=== PATIENT | female | born 1990 | race African-American/Black ===

== ENCOUNTER 2021-07-25 19:25 | Inpatient (IN) | payer OTHER, SELFPAY ==
[~2021-07-25] VITALS: Ht 167.6 cm; Wt 113.4 kg
[2021-07-25] MEDS ORDERED: PROMETHAZINE 25 MG/ML VIAL IVP PRN (19:55)
[2021-07-25] MEDS ORDERED: LACTATED RINGERS 500 ML IV ONE (19:55)
[2021-07-25] MEDS ORDERED: AMPICILLIN 2,000 MG in NACL 0.9% MINI-BAG PLUS 100 ML IV SCH (19:55)
[2021-07-25] MEDS ORDERED: NALBUPHINE 10 MG/ML AMP IVP PRN (19:55)
[2021-07-25] MEDS ORDERED: AMPICILLIN 1,000 MG in NACL 0.9% MINI-BAG PLUS 50 ML IV SCH (20:00)
[2021-07-25] MEDS ORDERED: AMPICILLIN 2,000 MG VIAL ONE (20:21)
[2021-07-25 20:38] LABS: BASOPHILS % (AUTO) 0.4 % (0.0-2.0); EOSINOPHILS % (AUTO) 0.6 % (0.0-4.0); HEMATOCRIT 34.2 % (36-48); HEMOGLOBIN 11.5 g/dL (12.0-16.0); LYMPHOCYTES # (AUTO) 2.6 K/uL (2.5-16.5); LYMPHOCYTES % (AUTO) 38.3 % (20.5-51.1); MEAN CORPUSCULAR HEMOGLOBIN 26 pg (27-31); MEAN CORPUSCULAR HGB CONC 34 g/dL (33-37); MEAN CORPUSCULAR VOLUME 78.4 fL (80-94); MONOCYTES # (AUTO) 0.5 K/uL (0.8-1.0); MONOCYTES % (AUTO) 7.1 % (1.7-9.3); NEUTROPHILS # (AUTO) 3.6 K/uL (1.8-7.7); NEUTROPHILS % (AUTO) 53.6 % (42.2-75.2); PLATELET COUNT (AUTO) 306 K/uL (140-450); RED BLOOD CELL COUNT(AUTO) 4.37 MIL/uL (4.20-5.40); RED CELL DISTRIBUTION WIDTH 13.7 % (11.6-13.7); WHITE BLOOD COUNT (AUTO) 6.7 K/uL (4.8-10.8)
[2021-07-25] MEDS: LACTATED RINGERS 1,000 ML IV SCH (20:50)
[2021-07-25 21:07] LABS: ALBUMIN 2.7 g/dL (3.4-5.0); ANION GAP 14.6 (8-16); CARBON DIOXIDE 21.9 mmol/L (21-32); CREATININE 0.6 mg/dL (0.6-1.3); POTASSIUM 3.5 mmol/L (3.5-5.1); TOTAL BILIRUBIN 0.2 mg/dL (0.0-1.0)
[2021-07-25] MEDS ORDERED: MISOPROSTOL 25 MCG TAB ONE (21:13)
[2021-07-25 22:25] LABS: APPEARANCE,URINE SL CLOUDY (CLEAR); BILIRUBIN,URINE NEGATIVE (NEGATIVE); BLOOD, URINE 2+ (NEGATIVE); COLOR,URINE YELLOW (YELLOW); LEUKOCYTE ESTERASE ,URINE TRACE (NEGATIVE); NITRITE, URINE NEGATIVE (NEGATIVE); PH,URINE 6.5 (5.0-9.0); UGLUCOSE NEGATIVE (NEGATIVE)
[2021-07-25 22:28] VITALS: BP 124/74
[2021-07-25 22:32] LABS: RBC,URINE 0-5 /HPF (0-5)
[2021-07-26] MEDS ORDERED: MISOPROSTOL 25 MCG TAB VG SCH
[2021-07-26] MEDS: AMPICILLIN 1,000 MG in NACL 0.9% MINI-BAG PLUS 50 ML IV SCH ×3 (00:54→10:49)
[2021-07-26] MEDS ORDERED: OXYTOCIN 20 UNITS in LACTATED RINGERS 1,000 ML IV SCH (01:45)
[2021-07-26] MEDS: LACTATED RINGERS 1,000 ML IV SCH ×3 (03:31→10:29)
[2021-07-26] MEDS ORDERED: OXYTOCIN 20 UNITS/LR PREMIX 1,000 ML IV ONE (03:39)
[2021-07-26] MEDS ORDERED: AMPICILLIN 1,000 MG VIAL ONE ×2 (05:04→10:37)
[2021-07-26] MEDS ORDERED: ROPIVACAINE 0.2%/NS PREMIX 200 ML EPI ONE (08:15)
--- NOTE | 2021-07-26 08:22 | NUR ---
PATIENT HAS BEEN SCREENED AND CATEGORIZED LOW NUTRITION RISK. PATIENT WILL BE SEEN WITHIN 7 DAYS OF ADMISSION. 08/01/[address]
[2021-07-26] MEDS ORDERED: ROPIVACAINE 0.2%/NS PREMIX 200 ML EPI SCH (08:40)
[2021-07-26] MEDS ORDERED: TEMAZEPAM 15 MG CAP PO PRN (11:45)
[2021-07-26] MEDS ORDERED: BENZOCAINE/MENTHOL 20%-0.5% 60 GM CAN TP PRN (11:45)
[2021-07-26] MEDS ORDERED: METHYLERGONOVINE 0.2 MG/ML AMP IM PRN (11:45)
[2021-07-26] MEDS ORDERED: METHYLERGONOVINE 0.2 MG TAB PO PRN (11:45)
[2021-07-26] MEDS ORDERED: oxyCODONE/APAP 5/325 MG 1 TAB TAB PO PRN ×2 (11:45)
[2021-07-26] MEDS ORDERED: OXYTOCIN 10 UNITS/ML VIAL IM PRN (11:45)
[2021-07-26] MEDS ORDERED: IBUPROFEN 800 MG TAB PO PRN (11:45)
[2021-07-26] MEDS ORDERED: METHYLERGONOVINE 0.2 MG/ML AMP ONE (11:54)
[2021-07-26] MEDS ORDERED: DOCUSATE SOD/SENNA 50/8.6 MG 1 TAB PO SCH (21:00)
== END 2021-07-27 14:05 | disposition home or self-care (01) | DRG 560 ==
LOC: MLD 19:25 → OBSVTOIN 19:25 → MFCC 07-26 17:50
PROVIDERS: ADMIT Obstetrics & Gynecology; ATTEND Obstetrics & Gynecology
PROC: 10E0XZZ Delivery of Products of Conception, External Approach (ICD-10-PCS; principal; 2021-07-25)
PROC: 3E0DXGC Introduction of Other Therapeutic Substance into Mouth and Pharynx, External Approach (ICD-10-PCS; 2021-07-25)
PROC: 3E0R3BZ Introduction of Anesthetic Agent into Spinal Canal, Percutaneous Approach (ICD-10-PCS; 2021-07-25)
PROC: 00HU33Z Insertion of Infusion Device into Spinal Canal, Percutaneous Approach (ICD-10-PCS; 2021-07-25)
DX: O36.8130 Decreased fetal movements, third trimester, not applicable or unspecified (principal); Z37.0 Single live birth; O41.03X0 Oligohydramnios, third trimester, not applicable or unspecified; Z20.822 Contact with and (suspected) exposure to COVID-19; Z3A.38 38 weeks gestation of pregnancy
CPT/HCPCS: 36415; 51702; 59409; 80053; 81001; 85018; 85025; 86592; 86886; 86900; 86901; 87086; J0290; J2210; J2300; J2550; J2590; J2795

== ENCOUNTER 2021-11-06 05:31 | Day surgery (SDC) | payer OTHER ==
[~2021-11-06] VITALS: Ht 167.6 cm; Wt 111.1 kg
[2021-11-06] MEDS ORDERED: BUPIVACAINE-MPF/EPI 0.25% 10 ML VIAL INJ ONE (09:08)
[2021-11-06] MEDS ORDERED: fentaNYL citrate 0.05 MG/ML VIAL ONE (09:11)
[2021-11-06] MEDS ORDERED: SEVOFLURANE 250 ML BTL INH ONE (09:11)
[2021-11-06] MEDS ORDERED: SUCCINYLCHOLINE CHLORIDE 200 MG/10 ML VIAL IVP ONE (09:50)
[2021-11-06] MEDS ORDERED: ONDANSETRON 4 MG/2 ML VIAL ONE (09:51)
[2021-11-06] MEDS ORDERED: KETOROLAC 30 MG/ML VIAL ONE (09:51)
[2021-11-06] MEDS ORDERED: PROPOFOL 200 MG/20 ML VIAL IV ONE ×2 (09:52)
[2021-11-06] MEDS ORDERED: ALBUTEROL HFA MDI 90 MCG/ACTUATION 8 GM INH ONE (10:20)
== END 2021-11-06 11:15 | disposition home or self-care (01) ==
LOC: MDS 05:31 → MMU 05:39 → MDS 11:15
PROVIDERS: ATTEND Obstetrics & Gynecology
DX: Z30.2 Encounter for sterilization (principal); E66.01 Morbid (severe) obesity due to excess calories; Z20.822 Contact with and (suspected) exposure to COVID-19; Z91.013 Allergy to seafood
CPT/HCPCS: 36415; 58661; 86886; 86900; 86901; 87426; J0330; J1885; J2405; J2704; J3010; J3490; J3535; J7120

== ENCOUNTER 2022-12-27 04:45 | Emergency (ER) | payer OTHER ==
[~2022-12-27] VITALS: Ht 167.6 cm; Wt 105.2 kg
[2022-12-27 05:07] VITALS: BP 134/90; PULSE 63; RESP 14; TEMP 97.4; O2SAT 100
[2022-12-27] MEDS ORDERED: HYDROcodone/APAP 5/325 MG 1 TAB TAB PO ONE (06:10)
[2022-12-27] MEDS ORDERED: ONDANSETRON 4 MG ODT PO ONE (06:10)
[2022-12-27] MEDS ORDERED: KETOROLAC 30 MG/ML VIAL IM ONE (06:10)
[2022-12-27] MEDS ORDERED: ONDA-188 PO (06:36)
[2022-12-27] MEDS ORDERED: ACET-8905 PO (06:36)
[2022-12-27] MEDS ORDERED: NAPR-54 PO (06:36)
[2022-12-27 06:55] VITALS: BP 120/79; PULSE 79; RESP 17; TEMP 98; O2SAT 100
== END 2022-12-27 05:07 | disposition home or self-care (01) ==
LOC: MED 04:45
DX: K08.89 Other specified disorders of teeth and supporting structures (principal); Z79.899 Other long term (current) drug therapy; Z88.6 Allergy status to analgesic agent
CPT/HCPCS: 96372; 99283; J1885; Q0162